=== PATIENT | female | born 1990 ===

== ENCOUNTER 2019-01-28 06:03 | Day surgery (SDC) | payer BC ==
[2019-01-28] VITALS (13 sets, daily range): BP systolic 107–129; BP diastolic 64–91
[~2019-01-28] VITALS: Ht 158.8 cm; Wt 45.4 kg
[~2019-01-28 06:03] MED LIST: BIOTIN2500 MCG PO; SPIRONOLACTONE100 MG ORAL; VITAMIN D1000 UNI1 ORAL; lions mane PO
[2019-01-28] MEDS ORDERED: PROBIOTIC1 EAC2 PO (06:47)
[2019-01-28] MEDS ORDERED: cefOXitin Sod 2 GM in D5W 110 ML IVPB ONE (07:00)
--- NOTE | 2019-01-28 07:08 | Anethesia Preoperative Eval ---
Anesthesia Pre-op PMH/ROS General Date of Evaluation: Jan 28, 2019 Anesthesiologist: Grady ASA Score: ASA 2 Mallampati Score Class I : Soft palate, uvula, fauces, pillars visible Class II: Soft palate, uvula, fauces visible Class III: Soft palate, base of uvula visible Class IV: Only hard plate visible Mallampati Classification: Class I Surgeon: Hayes Diagnosis: Uterine polyps Surgical Procedure: laparoscopic ovaria cystectomy, hysteroscopy D&C Anesthesia History: none Family History: no anesthesia problems Allergies: Coded Allergies: No Known Allergies (Unverified , 01/28/19) Medications: see eMAR Patient NPO?: Yes NPO Date: Jan 27, 2019 NPO Time: 22:00 Past Medical History Cardiovascular: Denies: HTN, CAD, [place], valve dz, arrhythmia, other Pulmonary: Denies: asthma, COPD, DAY[place], other Gastrointestinal/Genitourinary: Denies: GERD, CRI, ESRD, other Neurologic/Psychiatric: Reports: depression/anxiety; Denies: dementia, CVA, TIA, other Endocrine: Denies: DM, hypothyroidism, steroids, other HEENT: Denies: cataract (L), cataract (R), glaucoma, [place] (L), [place] (R), other Hematology/Immune: Denies: anemia, DVT, bleeding disorder, other Musculoskeletal/Integumentary: Denies: OA, RA, DJD, DDD, edema, other PSxH Narrative: rhinoplasty Anesthesia Pre-op Phys. Exam Physician Exam see karyn Constitutional: NAD Cardiovascular: RRR Respiratory: CTA Airway Exam Mallampati Score: Class I MO: full ROM: full Teeth: intact Anesthesia Pre-op A/P Labs see chart Urine Test Test 01/28/19 06:30 Urine HCG, Qualitative Negative (NEGATIVE) Risk Assessment & Plan Assessment: ASAa II Plan: GA Status Change Before Surgery: No Pre-Antibiotics Drug: Nora Stovall MD Jan 28, 2019 07:08
[2019-01-28] MEDS ORDERED: cefOXitin 1gm Inj ONE (07:14)
[2019-01-28] MEDS ORDERED: Rocuronium Bromide 50mg/5ml Inj IV ONE (07:15)
[2019-01-28] MEDS ORDERED: Midazolam 2mg/2ml Inj ONE (07:16)
[2019-01-28] MEDS ORDERED: Propofol 200mg/20ml IV ONE (07:16)
[2019-01-28] MEDS ORDERED: fentaNYL 100 mcg/2 mL ONE (07:16)
[2019-01-28] MEDS ORDERED: Lidocaine 1% MPF 10mg/ml 5ml ONE (07:16)
[2019-01-28] MEDS ORDERED: Metoclopramide 10mg/2ml Inj ONE (07:17)
[2019-01-28] MEDS ORDERED: Ketorolac 30mg Inj ONE (07:17)
[2019-01-28] MEDS ORDERED: Dexamethasone 4mg/ml vial ONE (07:17)
[2019-01-28] MEDS ORDERED: Ropivacaine 5mg/ml Vial 30ml INJ ONE (07:26)
[2019-01-28] MEDS ORDERED: Cefepime 1gm vial ONE (07:39)
[2019-01-28] MEDS ORDERED: cefOXitin 2gm Inj ONE (07:39)
--- NOTE | 2019-01-28 07:39 | Pre-Procedure Note/Attestation ---
Pre-Procedure Note/Attestation Complete Prior to Procedure Planned Procedure: right Procedure Narrative: Laparoscopic right ovarian cystectomy, hysteroscopy, possible polypectomy, D&C, removal of intrauterine device, possible fulguration of endometriosis Indications for Procedure Pre-Operative Diagnosis: Right ovarian cyst, presence of IUD, calcification in lower uterine segment, heavy bleeding with IUD in place Attestation I attest that I discussed the nature of the procedure; its benefits; risks and complications; and alternatives (and the risks and benefits of such alternatives ), prior to the procedure, with the patient (or the patient's legal claim service representative). I attest that, if there was a reasonable possibility of needing a blood transfusion, the patient (or the patient's legal claim service representative) was given the [place] [employer] [facility] [employer] [facility] standardized written summary, pursuant to the David Charlene Blood Safety Act ([place] Health and Safety Code # 1645, as amended). I attest that I re-evaluated the patient just prior to the surgery and that there has been no change in the patient's H&P, except as documented below: NONE Char Koo M.D. Jan 28, 2019 07:39
[2019-01-28] MEDS ORDERED: NS Irrig 1000ml IRRIG ONE (08:00)
[2019-01-28] MEDS ORDERED: Sterile Water Irrig 1000ml IRRIG ONE (08:00)
[2019-01-28] MEDS ORDERED: NS Irrig 1000ml ONE (08:00)
[2019-01-28] MEDS ORDERED: LR 1000ml ONE (08:00)
[2019-01-28] MEDS ORDERED: LR 1000ml 1,000 ML IVLG SCH (08:26)
[2019-01-28] MEDS ORDERED: fentaNYL 100 mcg/2 mL IV PRN (08:30)
[2019-01-28] MEDS ORDERED: Ketorolac 30mg Inj IV PRN (08:30)
[2019-01-28] MEDS ORDERED: DiphenhydrAMINE 50mg/ml Inj IVP PRN (08:30)
[2019-01-28] MEDS ORDERED: Midazolam 2mg/2ml Inj IVP PRN (08:30)
[2019-01-28] MEDS ORDERED: Hydromorphone 0.5mg/0.5ml inj IVP PRN (08:30)
[2019-01-28] MEDS ORDERED: Metoclopramide 10mg/2ml Inj IVP PRN (08:30)
[2019-01-28] MEDS ORDERED: LORazepam Inj 2mg/ml 1ml IV PRN (08:30)
--- NOTE | 2019-01-28 10:06 | Brief Operative Note ---
Immediate Post Operative Note Operative Note Chief Complaint: Right ovarian cyst, heavy bleeding with IUD Pre-op Diagnosis: Right ovarian cyst, presence of IUD, calcification in lower uterine segment, heavy bleeding with IUD in place Procedure: Hysteroscopy, dilation and curettage, IUD removal, laparoscopic right ovarian cystectomy Post-op Diagnosis: Right ovarian serous cyst Surgeon: Char Koo MD Power Generation Equipment Repairer: Fer Sanches MD Anesthesiologist: Nora Valentin MD Anesthesia: general Specimen: yes - Endometrial curettings, right ovarian cyst wall Complications: none Condition: stable Fluids: 1000ml crystalloid Estimated Blood Loss: minimal Drains: none - Boyd removed at end of case, 150cc clear urine Implant(s) used?: No Char Koo M.D. Jan 28, 2019 10:06
--- NOTE | 2019-01-28 10:07 | Operative Note - PDOC ---
Operative Note Operative Note Date of Operation/Procedure: Jan 28, 2019 Chief Complaint: Right ovarian cyst, heavy bleeding with IUD Pre-op Diagnosis: Right ovarian cyst, presence of IUD, calcification in lower uterine segment, heavy bleeding with IUD in place Procedure: Hysteroscopy, dilation and curettage, IUD removal, laparoscopic right ovarian cystectomy Post-op Diagnosis: Right ovarian serous cyst Post-op Diagnosis: same as pre-op Surgeon: Char Koo MD Aviation Boatswain'S Mate: Fer Sanches MD Anesthesiologist: Nora Valentin MD Anesthesia: general Specimen: yes - Endometrial curettings, right ovarian cyst wall Complications: none Condition: stable Fluids: 1000ml crystalloid Estimated Blood Loss: minimal Drains: none - Boyd removed at end of case, 150cc clear urine Implant(s) used?: No Indications for Procedure Persistent/enlarging right ovarian complex cyst, calcification in cervix Description of Procedure The R/B/A of the procedure were discussed with the patient and informed consent was obtained. The patient was taken to the operating room with IV in place. She was placed on the operating table in the dorsal supine position. SCD stockins were placed. General anesthesia was administered without difficulty. The patient was then placed in the dorsal lithotomy position with arms tucked at her side in position. The patient was then prepped and draped in the usual sterile fashion. Urinary catheter was inserted. A time out was called to verify patient and procedure. Attention was first turned to the pelvis. Mulliken speculum was inserted and the anterior lip of the cervix was grasped with a single toothed tenaculum. The IUD strings were clearly visualized at the external os, grasped with ring forceps, and the IUD was removed without complication. The cervix was then sequentially dilated to accommodate the diagnostic hysteroscope. The uterine cavity was inspected. The cavity appeared normal. The ostia were visualized bilaterally. The previously seen calcification was not appreciated on gross inspection. The hysteroscope was withdrawn and fractional curettage was performed. The uterus was sounded to 7.5cm and uterine manipulator was inserted and stabilized. All other instruments were removed from the vagina and attention was turned to the abdomen. The umbilicus was injected with Naropin and a vertical intraumbilical incision was made. The Veress needle was inserted and the abdomen was insufflated with CO2 gas. Initial pressure was 2mmHg. Once insufflated, the Veress was removed and a 5mm trochar was inserted. The abdomen was inspected and no harm due to the procedure done was noted. The liver edge appeared normal and no other abnormalities were appreciated in the pelvis or abdomen. Two 5mm accessory ports were inserted in the bilateral lower quadrants. The abdomen was irrigated and pelvic washings were sent to pathology. The affected ovary was identified on the right. A 5-6cm cyst with smooth rodrigues was noted. The ovary was grasped and elevated and an incision was made in the ovarian capsule using monopolar electrosurgery. The cyst capsule was revealed. The capsule was gently dissected away from the ovary using traction/counter traction. The cyst inadvertently ruptured during the cystectomy revealing serous fluid, however the spill of ovarian contents was controlled using the suction custom miller. Once the cyst wall was completely dissected away from the ovary, hemostasis was obtained using bipolar electrosurgery. The ovary was irrigated and inspected both on and off traction and excellent hemostasis was noted. The pelvis was thoroughly irrigated and all fluid was suctioned out of the posterior cul-de-sac. The gas was allowed to escape and the ports were removed under direct visualization. The skin incisions were reapproximated with 4-0 Monocryl, Mastisol, and steri- strips. The incisions were covered with 2x2 gauze and Tegaderm. Attention was briefly turned back to the pelvis. The uterine manipulator and urinary catheter were removed. The patient was awakened from anesthesia without complication. She was taken to the PACU for anticipated discharge once she has met all criteria. She will follow up with me in the office in 1-2 weeks to review the pathology and for post-operative check. Char Koo M.D. Jan 28, 2019 10:07
--- NOTE | 2019-01-28 10:17 | Immediate Post-Op Evaluation ---
Immediate Post-Op Evalulation Immediate Post-Op Evalulation Procedure: laparoscopic right ovarian cystectomy, hysteroscopy, d&c with polypectomy Date of Evaluation: Jan 28, 2019 Time of Evaluation: 10:19 IV Fluids: 1L Blood Products: 0 Estimated Blood Loss: 25 Urinary Output: 150 Blood Pressure Systolic: 111 Blood Pressure Diastolic: 71 Pulse Rate: 73 Respiratory Rate: 16 O2 Sat by Pulse Oximetry: 100 Temperature (Fahrenheit): 97.3 Pain Score (1-10): 0 Nausea: No Vomiting: No Complications 0 Patient Status: awake, reacts, patent, none Hydration Status: adequate Drug: Cefoxiotin 1g Given Within 1 Hr of Incision: Yes Nora Ricci MD Jan 28, 2019 10:17
--- NOTE | 2019-01-28 10:18 | 48 Hour Post Anesthesia Eval ---
Post Anesthesia Evaluation Procedure: laparoscopic right ovarian cystectomy, hysteroscopy, d&c with polypectomy Date of Evaluation: Jan 28, 2019 Airway: patent Nausea: No Vomiting: No Pain Intensity: 0 Hydration Status: adequate Cardiopulmonary Status: at baseline Mental Status/LOC: patient returned to baseline Post-Anesthesia Complications: 0 Follow-up care needed: ready to discharge Nora Ricci MD Jan 28, 2019 10:18
[2019-01-28] MEDS ORDERED: HYDROcodone/Acetamin 5/325 tab ORAL PRN (10:30)
[2019-01-28] MEDS ORDERED: D5 1/2NS 1,000 ML IV SCH (10:30)
[2019-01-28] MEDS ORDERED: HYDROmorphone 1mg/ml Carpuject SUBQ PRN (10:30)
== END 2019-01-28 14:30 | disposition home or self-care (01) ==
LOC: SUR 06:03
DX: N83.201 Unspecified ovarian cyst, right side (principal); Z97.5 Presence of (intrauterine) contraceptive device; N92.0 Excessive and frequent menstruation with regular cycle; R10.31 Right lower quadrant pain; F32.9 Major depressive disorder, single episode, unspecified; F41.9 Anxiety disorder, unspecified
CPT/HCPCS: 58558; 58662; 81025; J0694; J1100; J1170; J1885; J2250; J2405; J2704; J2765; J2795; J3010; 94003; 94150